=== PATIENT | female | born 1960 | race Caucasian/White ===

== ENCOUNTER 2017-02-27 14:09 | Emergency (ER) | payer OTHER ==
[~2017-02-27] VITALS: Ht 157.5 cm; Wt 75.2 kg
[~2017-02-27 14:09] MED LIST: ACET-1256 PO; ALBU1AER9 INH; ANT125 PO; ASPEC81 PO; ATOR-26 PO; DULO60CA44 PO; FENO48TA9 PO; FLUT0.0529 NAE; FRS/40 PO; GABA400C PO; GLC500 PO; METO25TA56 PO; NTRGSL/4 UT; NVLGI7030 SC; PANT40TA PO; POLY335019 PO; POTA10CA28 PO
[2017-02-27 14:11] VITALS: TEMP 36.5; Ht 157.5 cm; Wt 75.2 kg
[2017-02-27] MEDS ORDERED: DICY10CA55 PO (15:00)
[2017-02-27] MEDS ORDERED: MOME100A INH (15:00)
[2017-02-27] MEDS ORDERED: METF-384 PO (15:00)
[2017-02-27] MEDS ORDERED: ROSU40TA PO (15:00)
[2017-02-27] MEDS ORDERED: DULO60CA44 PO (15:00)
[2017-02-27] MEDS ORDERED: FENO50CA3 PO (15:00)
[2017-02-27] MEDS ORDERED: POTA1CAP53 PO (15:00)
[2017-02-27] MEDS ORDERED: ALBU18002 PO (15:00)
[2017-02-27] MEDS ORDERED: ASPI81TA28 PO (15:00)
[2017-02-27] MEDS ORDERED: NYSCR30 EXT (15:00)
[2017-02-27] MEDS ORDERED: PANT40TA PO (15:00)
[2017-02-27] MEDS ORDERED: INSDGIPEN SC (15:00)
[2017-02-27] MEDS ORDERED: NRN400 PO (15:00)
[2017-02-27] MEDS ORDERED: CILO50TA PO (15:00)
[2017-02-27] MEDS ORDERED: NVLGI7030 SC ×2 (15:00)
[2017-02-27] MEDS ORDERED: FRS/40 PO (15:00)
[2017-02-27] MEDS ORDERED: ACET-1256 PO (15:00)
--- NOTE | 2017-02-27 15:02 | EMERGENCY ROOM VISIT NOTE ---
History Report prepared by Deanna: Wally Colunga Under the Supervision of: Dr. Chucho Merchant D.O. First contact with patient: 14:46 Chief Complaint: CARDIAC ASSESSMENT Stated Complaint: REFERRED BY DOCTOR FOR EKG Nursing Triage Summary: pt reports to PCP today for L ear pain and swelling , pt states while speaking to provider mentioned that last " heart attack" was found by having ear pain and shoulder pain , pt denies cp sob, shoulder or neck pain at this time History of Present Illness The patient is a 56 year old female who presents to the Emergency Room for a cardiac assessment after visiting with her primary care physician. The patient states that she visited her primary care physician today due to resolved pain and swelling in her bilateral ears. She has a history of prior heart attacks and noted that her previous episodes were found following pain in her ears, jaw , and shoulders. She states that she had been having her ear pain for the past 2 -3 days. The patient notes that her discomfort is relieved at this time, but she is slightly nauseous. She also admits to feeling shortness of breath intermittently at baseline. Source of History: patient Onset: 2-3 Days [employer] Position: ear Timing: resolved Associated Symptoms: + SOB, + nausea Review of Systems See HPI for pertinent positives & negatives. A total of 10 systems reviewed and were otherwise negative. Past Medical & Surgical Medical Problems: (1) Maldonado's esophagus (2) Coronary artery disease (3) Diabetes mellitus, type II (4) Diabetic neuropathy (5) Diverticular disease of colon (6) Dyslipidemia (7) History of urinary calculi (8) Hypertension (9) Migraine headache Surgical Problems: (1) Status post coronary artery bypass grafting Family History Diabetes mellitus FHx: cancer FHx: heart disease Hypertension Social History Smoking Status: Never Smoker Alcohol Use: occasionally Drug Use: none Marital Status: Housing Status: lives with significant other Occupation Status: unemployed Current/Historical Medications Scheduled Aspirin (Aspirin Ec), 81 MG PO DAILY Cilostazol (Pletal), 50 MG PO DAILY Dicyclomine Hcl (Bentyl), 10 MG PO BID Duloxetine Hcl (Cymbalta), 60 MG PO DAILY Fenofibrate (Fenofibrate), 134 MG PO DAILY Furosemide (Lasix), 40 MG PO DAILY Gabapentin (Gabapentin), 400 MG PO TID Insulin Aspart Protamine & Asp (Novolog Mix 70/30), 80 UNITS SC QAM Insulin Aspart Protamine & Asp (Novolog Mix 70/30), 92 UNITS SC QPM Insulin Glargine (Lantus Solostar), 14 UNITS SC DAILY Metformin Hcl (Glucophage), 1,000 MG PO BIDM Mometasone Furoate-Formoterol (Dulera 100/5 Mcg), 2 PUFFS INH BID Pantoprazole (Protonix), 40 MG PO BID Potassium Chloride (Klor-Con Sprinkle), 10 MEQ PO DAILY Rosuvastatin Calcium (Crestor), 40 MG PO DAILY Scheduled PRN Acetaminophen (Tylenol), 500 MG PO Q8 PRN for Pain Albuterol Sulfate (Proair Respiclick), 2 PUFFS PO Q4 PRN for Cough Miscellaneous Medications Nystatin (Nystatin Cream), 0 EXT Allergies Coded Allergies: Iodine (Verified Allergy, Intermediate, HIVES, 08/30/15) CT DYE/XRAY DYE ALLERGY Metoclopramide (Verified Allergy, Intermediate, HIVES, 08/30/15) Iodinated Contrast Media (Verified Allergy, Unknown, ITCHINESS/HIVES, 07/05) Physical Exam Vital Signs Date Time Temp Pulse Resp B/P (MAP) Pulse Ox O2 Delivery O2 Flow Rate FiO2 02/27/17 17:18 82 18 107/71 92 02/27/17 16:12 82 20 106/69 95 Room Air 02/27/17 14:34 82 02/27/17 14:11 36.5 85 18 125/82 95 Room Air Physical Exam GENERAL: Patient is awake, alert, and in no acute distress. Patient is resting comfortably and showing no signs of anxiety EYES: The conjunctivae are clear. The pupils are round and reactive. EARS, NOSE, MOUTH AND THROAT: The nose is without any evidence of any deformity. Mucous membranes are moist tongue is midline NECK: The neck is nontender and supple. RESPIRATORY: Normal respiratory effort is noted there is no evidence of wheezing rhonchi or rales CARDIOVASCULAR: Regular rate and rhythm noted there no murmurs rubs or gallops normal S1 normal S2 GASTROINTESTINAL: The abdomen is soft. Bowel sounds are present in all quadrants. Abdomen is nontender MUSCULOSKELETAL/EXTREMITIES: There is no evidence of gross deformity full range of motion is noted in the hips and shoulders SKIN: There is no obvious evidence of any rash. There are no petechiae, pallor or cyanosis noted. NEUROLOGIC: Patient is awake alert and oriented x3 strength is symmetric patellar reflexes are 2+ bilaterally Medical Decision & Procedures ER Provider Diagnostic Interpretation: Radiology results as stated below per my review and radiologist interpretation: CHEST ONE VIEW PORTABLE CLINICAL HISTORY: CHEST PAIN dyspnea COMPARISON STUDY: 05/29/2015 FINDINGS: Prior median sternotomy. Diaphragms smooth. Lungs are clear. IMPRESSION: No acute process. Electronically signed by: Twin Connor M.D. 02/27/2017 3:10 PM Dictated Date/Time: 02/27/2017 3:09 PM Laboratory Results 02/27/17 14:30 Red Blood Count 5.13, Mean Corpuscular Volume 97.1, Mean Corpuscular Hemoglobin 30.6, Mean Corpuscular Hemoglobin Concent 31.5, Mean Platelet Volume 9.6, Neutrophils (%) (Auto) 46.5, Lymphocytes (%) (Auto) 38.2, Monocytes (%) (Auto) 12.1, Eosinophils (%) (Auto) 2.5, Basophils (%) (Auto) 0.5, Neutrophils # (Auto ) 2.98, Lymphocytes # (Auto) 2.44, Monocytes # (Auto) 0.77, Eosinophils # (Auto ) 0.16, Basophils # (Auto) 0.03 02/27/17 14:30 Test 02/27/17 14:30 White Blood Count 6.39 K/uL (4.8-10.8) Red Blood Count 5.13 M/uL (4.2-5.4) Hemoglobin 15.7 g/dL (12.0-16.0) Hematocrit 49.8 % (37-47) Mean Corpuscular Volume 97.1 fL (80-100) Mean Corpuscular Hemoglobin 30.6 pg (25-34) Mean Corpuscular Hemoglobin Concent 31.5 g/dl (32-36) Platelet Count 299 K/uL (130-400) Mean Platelet Volume 9.6 fL (7.4-10.4) Neutrophils (%) (Auto) 46.5 % Lymphocytes (%) (Auto) 38.2 % Monocytes (%) (Auto) 12.1 % Eosinophils (%) (Auto) 2.5 % Basophils (%) (Auto) 0.5 % Neutrophils # (Auto) 2.98 K/uL (1.4-6.5) Lymphocytes # (Auto) 2.44 K/uL (1.2-3.4) Monocytes # (Auto) 0.77 K/uL (0.11-0.59) Eosinophils # (Auto) 0.16 K/uL (0-0.5) Basophils # (Auto) 0.03 K/uL (0-0.2) RDW Standard Deviation 49.8 fL (36.4-46.3) RDW Coefficient of Variation 13.9 % (11.5-14.5) Immature Granulocyte % (Auto) 0.2 % Immature Granulocyte # (Auto) 0.01 K/uL (0.00-0.02) Prothrombin Time 10.4 SECONDS (9.0-12.0) Prothromb Time International Ratio 1.0 (0.9-1.1) Activated Partial Thromboplast Time 35.8 SECONDS (21.0-31.0) Partial Thromboplastin Ratio 1.4 Anion Gap 11.0 mmol/L (3-11) Est Creatinine Clear Calc Drug Dose 67.8 ml/min Estimated GFR () 85.1 Estimated GFR (Non- 73.4 BUN/Creatinine Ratio 14.8 (10-20) Calcium Level 9.6 mg/dl (8.5-10.1) Total Bilirubin 0.4 mg/dl (0.2-1) Direct Bilirubin 0.1 mg/dl (0-0.2) Aspartate Amino Transf (AST/SGOT) 89 U/L (15-37) Alanine Aminotransferase (ALT/SGPT) 87 U/L (12-78) Alkaline Phosphatase 72 U/L (45-117) Total Creatine Kinase 87 U/L (26-192) Creatine Kinase MB 3.1 ng/ml (0.5-3.6) Creatine Kinase MB Ratio 3.6 (0-3.0) Troponin I < 0.015 ng/ml (0-0.045) Total Protein 8.6 gm/dl (6.4-8.2) Albumin 4.6 gm/dl (3.4-5.0) Lipase 181 U/L (73-393) Laboratory results per my review. ECG Indication: chest pain Rate (beats per minute): 82 Rhythm: normal sinus Findings: Q waves (Inferior), T-wave inversion (anterior, high lateral) Comparison ECG Date: 09/25/2016 Change: no significant change ED Course 1452: The patient was evaluated in room C12. A complete history and physical examination were performed. 1702: I discussed the case with Dr. Gimenez - Emanuel Tassel Maker. He suggests a follow-up with cardiology and a return visit to the ED if her symptoms appear more cardiac in nature. 1708: Upon reevaluation, the patient is resting in bed. I discussed the results and treatment plan with her. She verbalized agreement of the treatment plan. The patient was discharged home. Medical Decision Blood pressure screening: Patient was found to have normal blood pressure on screening and does not require follow-up. Medication Reconciliation: I attest that I have personally reviewed the patient' s current medications list. Differential diagnosis: Etiologies such as cardiac ischemia, aortic dissection, pulmonary embolism, pneumonia, pneumothorax, musculoskeletal, infections, pericarditis, myocarditis , esophageal rupture, gastrointestinal, as well as others were entertained. The patient is a 56-year-old female who presented to the emergency department at the request of her primary care physician's office. She was seen at the primary care physician's office today for earache and jaw pain. She was felt to have an ENT infection and was started on medications but because of her history she had an EKG done in the office. EKG did show some ST segment and T-wave abnormalities which was felt to be a new change compared to previous EKG. The patient was sent to the emergency department for further evaluation. I discussed the patient's laboratory and radiographic studies with her. Her EKG appears similar to when she's had in the past. Her cardiac biomarkers were negative despite having ongoing pain for more than 24 hours. I discussed the limitations of the emergency department workup for chest pain with her. I also discussed her case with the on-call Emanuel manager drive and at this time I feel the patient can safely follow up as an outpatient. Likely this represents an ENT source for her pain but with her history could represent an anginal equivalent. This reason she was encouraged to rest and avoid any strenuous activity. She was also encouraged to follow-up with her doctor for further evaluation and possible stress testing. She was also encouraged to return to the emergency department immediately if symptoms change worsen or the need arises. Consults Time Called: 1656 Consulting Physician: Dr. Pernell Castellanos Tassel Maker Returned Call: 1702 I discussed the case with Dr. Pernell Castellanos Tassel Maker. He suggests a follow-up with cardiology and a return visit to the ED if her symptoms appear more cardiac in nature. Impression Primary Impression: Precordial chest pain Additional Impression: Ear ache Scribe Attestation The scribe's documentation has been prepared under my direction and personally reviewed by me in its entirety. I confirm that the note above accurately reflects all work, treatment, procedures, and medical decision making performed by me. Departure Information Dispostion Home / Self-Care Referrals Estela Summers M.D. (PCP) Forms IMPORTANT VISIT INFORMATION Patient Instructions My [facility] Additional Instructions Follow-up with your primary care physician for reevaluation. Rest and avoid any strenuous activity. Continue all other medications as prescribed. Return to the emergency department immediately if symptoms change worsen or the need arises. I would recommend a repeat of your liver function studies next week with your family doctor because they were mildly elevated in the emergency department this evening. Problem Qualifiers
--- NOTE | 2017-02-27 15:11 | DIAGNOSTIC IMAGING REPORT ---
CHEST ONE VIEW PORTABLE CLINICAL HISTORY: CHEST PAIN dyspnea COMPARISON STUDY: 05/29/2015 FINDINGS: Prior median sternotomy. Diaphragms smooth. Lungs are clear. IMPRESSION: No acute process. Electronically signed by: Twin Connor M.D. 02/27/2017 3:10 PM Dictated Date/Time: 02/27/2017 3:09 PM
[2017-02-27 15:19] LABS: BASO % 0.5 %; BASO ABS # 0.03 K/uL (0-0.2); COMPLETE YES; EOS % 2.5 %; HEMATOCRIT 49.8 % (37-47); IG% 0.2 %; LYMPH % 38.2 %; LYMPH ABS # 2.44 K/uL (1.2-3.4); MEAN CELL VOLUME 97.1 fL (80-100); MEAN CORPUSCULAR HEMOGLOBIN 30.6 pg (25-34); MEAN CORPUSCULAR HGB CONC 31.5 g/dl (32-36); MEAN PLATELET VOLUME 9.6 fL (7.4-10.4); MONO % 12.1 %; NEUT % 46.5 %; PLATELET COUNT 299 K/uL (130-400); RED BLOOD COUNT 5.13 M/uL (4.2-5.4); WHITE BLOOD COUNT 6.39 K/uL (4.8-10.8)
[2017-02-27 15:29] LABS: PARTIAL THROMBOPLASTIN RATIO 1.4; PROTHROMBIN TIME (PATIENT) 10.4 SECONDS (9.0-12.0)
[2017-02-27 16:48] LABS: POTASSIUM 3.8 mmol/L (3.5-5.1); SODIUM 139 mmol/L (136-145)
[2017-02-27 16:49] LABS: ALKALINE PHOSPHATASE 72 U/L (45-117); ALT/SGPT 87 U/L (12-78); BLOOD UREA NITROGEN 13 mg/dl (7-18); BUN/CREATININE RATIO 14.8 (10-20); CALCIUM 9.6 mg/dl (8.5-10.1); CARBON DIOXIDE 26 mmol/L (21-32); CHLORIDE 102 mmol/L (98-107); CREATININE 0.88 mg/dl (0.60-1.20); GLUCOSE 80 mg/dl (70-99)
[2017-02-27 16:56] LABS: AST/SGOT 89 U/L (15-37); CKMB/CK RATIO 3.6 (0-3.0)
[2017-02-27 17:18] VITALS: BP 107/71; PULSE 82; O2SAT 92
== END 2017-02-27 17:19 | disposition home or self-care (01) ==
LOC: C.EDB 14:10 → C.EDC 17:19
DX: R07.2 Precordial pain (principal); H92.03 Otalgia, bilateral; K22.70 Barrett's esophagus without dysplasia; I25.10 Atherosclerotic heart disease of native coronary artery without angina pectoris; E78.5 Hyperlipidemia, unspecified; E11.40 Type 2 diabetes mellitus with diabetic neuropathy, unspecified; Z87.442 Personal history of urinary calculi; I10 Essential (primary) hypertension; G43.909 Migraine, unspecified, not intractable, without status migrainosus; Z83.3 Family history of diabetes mellitus; Z80.9 Family history of malignant neoplasm, unspecified; Z82.49 Family history of ischemic heart disease and other diseases of the circulatory system; Z79.82 Long term (current) use of aspirin; Z79.899 Other long term (current) drug therapy

== ENCOUNTER → 2017-04-01 | Outpatient (CLI) | payer OTHER ==
[~2017-04-01] MED LIST changes: +ALBU18002 PO; -ALBU1AER9 INH; -ANT125 PO; -ASPEC81 PO; +ASPI81TA28 PO; -ATOR-26 PO; +CILO50TA PO; +DICY10CA55 PO; -FENO48TA9 PO; +FENO50CA3 PO; -FLUT0.0529 NAE; -GABA400C PO; -GLC500 PO; +INSDGIPEN SC; +METF-384 PO; -METO25TA56 PO; +MOME100A INH; +NRN400 PO; -NTRGSL/4 UT; +NYSCR30 EXT; -POLY335019 PO; -POTA10CA28 PO; +POTA1CAP53 PO; +ROSU40TA PO
--- NOTE | 2017-04-02 06:09 | PAP/PSG TECHNICIAN REPORT ---
[facility] Electrical Maintenance Engineer Polysomnogram Report Study name: None Report date: 04/02/2017 Study date: 04/01/2017 Referring Physician: Jose Velazquez M.D. Name: BILLY BONI Dontrell Interpreting Physician: Anuj Velazquez M.D. Date of : 1960 Electrical Maintenance Engineer: Roberta Reid [facility]. Sex: Female Age: 57 StudyType: PSG Weight: 164 lbs Height: 57 years, Height 5' 1" Neck Circum: 14.5 inches BMI: 30.98 Medications: Neurontin 400 mg, Fenofibrate , Prinivil, Duloxetine, Dulera, Bentyl, Lasix, Protonix, Lopressor, Lipitor, Glucophage, Klor-Con, Albuterol 108(90base), Aspirin 81 mg, Nystatin [id number], Acetaminophen 500 mg, Miralax, Flonase Patient History 56 yr. old female here for a possible split night sleep study in room 2. Patient complains of EDS, and morning headaches. Patients [place] Sleepiness Scale score is 10/21 (she does not drive). Parameters Monitored NPSG: E1-M2, E2-M1, Fp1-M2, Fp2-M1, F3-M2, F4-M2, F4-M1, C3-M2, C4-M2, C4-M1, O1-M2, O2-M2, O2-M1, T3-M2, T4-M1, P3-M2, P4-M1, CHIN1, CHIN2, HR, EKG, Legs, PFLOW, SNOR, FLOW, CFLOW, Tidal Volume, THOR, ABDO, SpO2, PLTH, CPRESS, ETCO2 Wave, ETCO2, pH Sleep Architecture Sleep Stages Time at Lights Off 10:52:41 PM STAGES Time (min.) TST (%) Time at Lights On 5:38:41 AM Wake 131.0 -- Total Recording Time (TRT) 406.00 min. N1 20.0 7 Total Sleep Period (TSP) 339.5 min. N2 193.0 70 Total Sleep Time (TST) 275.0min. N3 14.0 5 Awake Time 131.0 min. REM 48.0 17 Wake after Sleep Onset 64.5 min. Sleep Efficiency (SE) 68 % Sleep Onset Latency (RON) 66.5 min. Number of Stage 1 Shifts None Awakenings 14 Stage Changes 58 Number of REM periods 1 REM 48.0 17 REM Latency 249.5 min. NREM 227.0 83 Body Position Analysis Supine Right Left Side Prone Vertical Total Sleep Time (min.) 187.3 164.9 41.3 206.24 0.0 0.3 Total Sleep Time (%) 25% 60% 15% 75 0% N/A% Total Sleep Time REM (min.) 0.0 48.0 0.0 None 0.0 0.0 Total Sleep Time NREM (min.) 68.8 116.9 41.3 None 0.0 0.0 Intermittent Wake (min.) 118.6 11.8 0.2 None 0.0 0.3 Total Sleep Period (%) 36% None None None None None Arousals Myoclonus (PLM) * Events Count Index Events Count Index Spontaneous 9 2 Events Awake (PLMW) 82 37.6 Respiratory 0 0.0 Events Asleep w/ Arousal (PLMA) 4 0.9 PLM 4 1 Events Asleep w/o Arousal (PLMS) 19 4.1 Snoring 8 2 Total Asleep 23 5.0 Total 20 4 Total 105 16 Respiratory Analysis * CA OA MA CH H RERA Total Count 2 1 0 0 11 0 14 Index 0.4 0.2 0.0 0 2.4 0 3.1 Mean Duration 10.0 12.0 0.0 0.00 23.3 0.0 20.6 Longest Duration 10.0 12.0 0.0 0.00 0.0 0.0 39.6 Respiratory Event Summary Total Supine ~Supine Right Left Prone REM NREM Apneas Count 3 0 3 2 1 N/A 0 3 Index 0.7 0 1 0.7 1.5 N/A 0 1 Hypopneas (4% Desat) Count 11 5 6 6 0 N/A 4 7 Index 2.4 4.4 2 2.2 0.0 N/A 5.0 1.9 Apneas & All Hypopneas Count 14 5 9 8 1 N/A 4 10 Index 3.1 4 3 3 1 N/A 5.0 2.6 Respiratory Events (Passenger Car Cleaning Supervisor+All Hyp+RERA) Count 14 5 9 8 1 N/A 4 10 Index 3.1 4 3 2.9 1.5 N/A 5.0 2.6 Respiratory Related Arousal Count 0 5 0 0 0 N/A 0 0 Index 0.0 0 0 0 0 N/A 0 0 Snoring Analysis Supine Right Left Prone REM NREM Total Snore duration 5.2 min Snores count 221 38 21 N/A 6 274 280 Snore mean duration 1.1 Sec Snores index 193 14 30 N/A 7.5 72.4 61.1 TST with snoring (%) 1.9% Desaturation Event Summary: Minimum %SpO2 Event Count Mean/Min/Max Duration(sec.) Desaturation Index % Time In Bed > 90 28 18.7 / 5.3 / 60.0 12.6 33.0 86 - 90 11 17.1 / 5.8 / 57.0 2.4 66.9 81 - 85 0 N/A 0.0 0.0 76 - 80 0 N/A 0.0 0.0 71 - 75 0 N/A 0.0 0.0 66 - 70 0 N/A 0.0 0.0 61 - 65 0 N/A 0.0 0.0 56 - 60 0 N/A 0.0 0.0 51 - 55 0 N/A 0.0 0.0 < 50 0 N/A 0.0 0.0 Total REM NREM Awake <50% 0.0 min. 0.0 min. 0.0 min. 0.0 min. 51 - 60% 0.0 min. 0.0 min. 0.0 min. 0.0 min. 61 - 70% 0.0 min. 0.0 min. 0.0 min. 0.0 min. 71 - 80% 0.2 min. 0.0 min. 0.0 min. 0.2 min. 81 - 90% 271.0 min. 36.0 min. 116.2 min. 118.8 min. 91 - 100% 133.6 min. 12.0 min. 110.3 min. 11.3 min. Average 90 90 91 89 Minimum SpO2 72 86 86 72 Desaturation Event Index 4.4 6.3 5.3 2.7 # Desat. Events below 89% 14 5 5 4 Time(%) with Saturation below 89% 14.8 2.6 5.0 7.2 Time(min.) with Saturation below 89% 60.1 10.3 20.4 29.3 Time (mins) REM (mins) NREM (mins) % of TST SpO2 Below 90% 12 5 N7 33.3 SpO2 Below 88% 3 0 0 2 Heart Rate Analysis Min (bpm) Max (bpm) Average (bpm) Awake 38 127 81 NREM 67 127 85 REM 62 92 85 Overall 62 127 85 Supplemental O2 Values Minimum O2 level: None Value Start Time End Time Electrical Maintenance Engineer Comments MS. Jansen slept in the right, left, and supine positions. Cardiac arrhythmias noted. No PLMs noted. No bruxism noted. Snoring was noted and scored as a 3 on a scale of 0 through 5. (0=no snoring, 5=snoring loud enough to be heard through a closed door or down the [address] way) MS. Jansen did not wake to use the restroom during the night. MS. Jansen stated, that was a normal night. The final report will be interpreted and signed by a sleep physician. The completed physician report will then be placed in the patient medical record. Therapy (cm H2O) 0 TIB (min.) 406.0 TST (min.) 275.0 Sleep Onset (min.) 66.5 REM Onset From Sleep (min.) 249.5 Sleep Efficiency % 68 Wakefulness (%) 32 Wakefulness (min.) 131.0 NREM 1 (%) 7 NREM 1 (min.) 20.0 NREM 2 (%) 70 NREM 2 (min.) 193.0 NREM 3 (%) 5 NREM 3 (min.) 14.0 REM (%) 17 REM (min.) 48.0 # Arousals 20 Arousal Index 4 # Snore 280 Snore Index 61.1 AHI 3.1 AHI Supine 4 AHI Non-Supine 3 NREM AHI 2.6 REM AHI 5.0 RDI 3.1 # Obstructive Apnea 1 # Central Apnea 2 # Mixed Apnea 0 # Hypopneas 11 RERAs 0 Total Respiratory Events 15 Time Below SpO2 89% (min.) 30.8 Mean NREM SpO2 (%) 91 Mean REM SpO2 (%) 90 Mean Sleep SpO2 (%) 91 Min NREM SpO2 (%) 86 Min REM SpO2 (%) 86 Position Supine (min.) 187.3 Position Non-supine (min.) 206.2 LM Index Sleep 5.0 LM Index NREM 5.0 LM Index REM 5.0 Mean Heart Rate (bpm) 85 Min Heart Rate (bpm) 62
--- NOTE | 2017-04-27 18:39 | POLYSOMNOGRAPH REPORT ---
REFERRING PERSON: Dr. Alireza Velazquez. LIQUEFIER: Roberta Reid. Ms. Jansen is a 57-year-old female sent for a possible split night sleep study. She complains of excessive daytime sleepiness and morning headaches. Her [place] sleepiness scale score on the evening of this study is 10/21. She does not drive. BMI is 30.98. Following the technical and digital specifications of the [place] [employer] (AASM) a standard diagnostic polysomnogram was performed monitoring EEG, EOG, EMG (chin and leg deviations), oxygen saturation, body position, digital video, respiratory effort and airflow. The sleep Stage and event scoring was based on the AASM Manual for the Scoring of Sleep and Associated Events 2007 edition. Apneas are defined as a drop in the peak thermal sensor excursion by >90% of baseline for at least 10 seconds. Hypopneas were scored using the 4% oxygen desaturation rule (4A-[employer]ic[employer]) and a decrease in the nasal pressure excursions by >30% of baseline for at least 10 seconds. Respiratory effort-related arousal (RERA's) is defined as a sequence of breaths lasting at least 10 seconds characterized by increasing respiratory effort or flattening of the nasal pressure waveform leading to an arousal from sleep when the sequence of breaths does not meet criteria for an apnea or hypopnea. Apnea Hypopnea index (AHI) is defined as the number of apneas and hypopneas occurring in an hour of sleep. Respiratory disturbance index (RDI) is defined as the number of apneas, hypopneas, and RERA's occurring in an hour of sleep. Ms. Larsons total sleep period time was 339.5 minutes. Total sleep time was 275 minutes. Sleep efficiency was 68%. Latency to sleep onset was 66.5 minutes. Wake after sleep onset was 64.5 minutes. Total non-REM sleep time was 227 minutes. She spent 7% of that time in N1 sleep, 70% in N2 sleep, and 5% in N3 sleep. REM latency was 249.5 minutes. Total REM sleep time was 48 minutes or 17% of total sleep time. There were 20 cortical arousals from sleep. Nine of these arousals were spontaneous, 4 were due to periodic limb movements and 8 were due to snoring. There were 23 periodic limb movements noted on this test. Limb movement index was 5. Limb movement with arousal index was 0.9. There were 2 central, 1 obstructive and no mixed apneas on this test. There were 11 hypopneas and no RERA. Apnea-hypopnea index was 3.1. This is normal. 280 snoring events were recorded. Total sleep time with snoring was 1.9%. Mean saturation was 90% with desaturations to 72% on this test. Saturations were less than 89 for 60.1 minutes of recorded time. This is significant nocturnal hypoxemia. There was no cardiac ectopy other than occasional premature atrial complexes noted on EKG monitoring. Heart rates ranged from a low of 62 beats per minute to a high of 127 beats per minute during sleep. IMPRESSION AND PLAN: A 57-year-old female with evidence of nocturnal hypoxemia without sleep apnea on this sleep study. 1. The patient would likely benefit from the oxygen therapy. She should be started on 2 liters of oxygen at home and then an overnight oximetry performed on oxygen therapy to ensure that her hypoxemia resolves with this therapy. 2. Should the cause of her hypoxemia be unknown, this patient may benefit from pulmonary function test and/or pulmonary consultation.
== END | disposition home or self-care (01) ==
LOC: C.NEUR 21:00
PROVIDERS: ATTEND Family Medicine
DX: G47.10 Hypersomnia, unspecified (principal); R06.83 Snoring; I10 Essential (primary) hypertension; E11.9 Type 2 diabetes mellitus without complications; E66.9 Obesity, unspecified; Z79.899 Other long term (current) drug therapy

== ENCOUNTER → 2017-09-18 | Outpatient (CLI) | payer OTHER ==
[~2017-09-18] MED LIST changes: +AMOX500C3 PO; +ANT25 PO; +CYM/30 PO; +EMPA1TAB PO; +FENO134C PO; +FLUT0.15 NAE; +LSN25 PO; +METO25TA56 PO; +NVLGI/PEN SC; -NYSCR30 EXT; +NYSCR30 TOP; +ONDA4TAB10 SL; +OXGN; +POLY335019 PO; +RANI150T3 PO; +SINCALIDE INJ 1.5 MCG in SODIUM CHLORIDE 0.9% 100ML 100 ML IV SCH
--- NOTE | 2017-09-18 10:20 | DIAGNOSTIC IMAGING REPORT ---
NUCLEAR MEDICINE HEPATOBILIARY SCAN WITH EJECTION FRACTION HISTORY: COMMON BILE DUCT DILATION, right upper quadrant abdominal PAIN COMPARISON: Abdominal ultrasound 03/17/2014. TECHNIQUE: Immediately following the intravenous administration of 5.3 mCi Tc-99m Choletec, dynamic anterior abdominal imaging pre/post 1.5 mcg of Kinevac was performed. FINDINGS: Uniform hepatic tracer accumulation is shown. Prompt intrahepatic biliary excretion is seen. The gallbladder, common bile duct, and small bowel are all visualized by 20 minutes. This appearance represents the normal sequence of biliary excretion. The gall bladder ejection fraction following administration of Kinevac was 52% (normal >35%). IMPRESSION: 1. No evidence for cystic duct obstruction. 2. Gallbladder ejection fraction calculated to be 52 %. Electronically signed by: Fernando Polo M.D. 09/18/2017 10:19 AM Dictated Date/Time: 09/18/2017 10:18 AM
== END | disposition home or self-care (01) ==
LOC: C.NUCL 07:43
PROVIDERS: ATTEND Student in an Organized Health Care Education/Training Program
DX: K83.8 Other specified diseases of biliary tract (principal); R10.9 Unspecified abdominal pain

== ENCOUNTER 2018-02-04 18:03 | Emergency (ER) | payer OTHER ==
[~2018-02-04] VITALS: Ht 154.9 cm; Wt 74.1 kg
[~2018-02-04 18:03] MED LIST changes: -AMOX500C3 PO; -ANT25 PO; -CYM/30 PO; -EMPA1TAB PO; -FENO134C PO; -FLUT0.15 NAE; -LSN25 PO; -METO25TA56 PO; -NVLGI/PEN SC; -ONDA4TAB10 SL; -OXGN; -POLY335019 PO; -RANI150T3 PO; -SINCALIDE INJ 1.5 MCG in SODIUM CHLORIDE 0.9% 100ML 100 ML IV SCH
[2018-02-04 18:09] VITALS: TEMP 36.4; Ht 154.9 cm; Wt 74.1 kg
[2018-02-04] MEDS ORDERED: MECLIZINE HCL 25 MG TAB PO STA (18:19)
[2018-02-04] MEDS ORDERED: ACETAMINOPHEN 500 MG TAB PO STA (18:19)
--- NOTE | 2018-02-04 18:42 | EMERGENCY ROOM VISIT NOTE ---
History Report prepared by Deanna: Micky Walker Under the Supervision of: Dr. Uday Alva M.D. First contact with patient: 18:13 Chief Complaint: DIZZY Stated Complaint: DIZZY,NAUSEA History of Present Illness The patient is a 57 year old female who presents to the Emergency Room with complaints of worsening dizziness beginning yesterday. The patient states her symptoms started yesterday after therapy for her back. She reports she was walking to her car when she felt her sugar was dropping. The patient notes her sugar was 77 at the car. She states she started feeling slightly dizzy and developed a headache. The patient reports she has history of migraines, and she has not had one in a while. She notes her headache was a 6/10 yesterday. The patient states she tried lying down on the couch yesterday, and it slightly alleviated her symptoms, but they were still there. She reports when she got up to use the restroom and walk around, her symptoms worsened again. She notes she was having a severe spell yesterday, and she noticed her eyes were jerking back and forth. The patient notes she went to sleep and woke up with the same symptoms this morning, and her left ear was swollen. She states her headache decreased to a 2/10. The patient reports she feels out of it. She notes she was sweaty and hot. The patient states she was placed on amoxicillin 10 days ago for fluid on her lungs because she was coughing too much. She denies the room spinning, vomiting, arm weakness, congestion, runny nose, sorethroat, urinary symptoms, a history of stroke, a history of vertigo, and trouble eating or drinking. Source of History: patient Onset: yesterday Quality: other (dizziness) Timing: worsening Modifying Factors (Worsening): other (standing and walking around) Modifying Factors (Relieving): other (laying down) Associated Symptoms: + headache, No sorethroat, No vomiting, No urinary symptoms, No weakness (arm) Note: Associated symptoms: episode of her eyes jerking back and forth, left ear swelling, sweaty, and hot Denies: congestion, runny nose, room spinning, trouble eating or drinking Review of Systems See HPI for pertinent positives & negatives. A total of 10 systems reviewed and were otherwise negative. Past Medical & Surgical Medical Problems: (1) Maldonado's esophagus (2) Coronary artery disease (3) Diabetes mellitus, type II (4) Diabetic neuropathy (5) Diverticular disease of colon (6) Dyslipidemia (7) History of urinary calculi (8) Hypertension (9) Migraine headache Surgical Problems: (1) Status post coronary artery bypass grafting Family History Diabetes mellitus FHx: cancer FHx: heart disease Hypertension Social History Smoking Status: Former Smoker Alcohol Use: occasionally Drug Use: none Marital Status: Housing Status: lives with significant other Occupation Status: unemployed Current/Historical Medications Scheduled Amoxicillin (Amoxil), Unknown Dose PO DIRECTED Aspirin (Aspirin Ec), 162 MG PO DAILY Cilostazol (Pletal), 100 MG PO DAILY Dicyclomine Hcl (Bentyl), 10 MG PO BID Duloxetine Hcl (Cymbalta), 60 MG PO DAILY Empagliflozin (Jardiance), 10 MG PO DAILY Fenofibrate Micronized (Tricor), 134 MG PO QAM WITH MEAL Fluticasone Propionate (Nasal) (Flonase Allergy Relief), 2 SPRAYS JOSE CARLOS DAILY Furosemide (Lasix), 40 MG PO DAILY Gabapentin (Gabapentin), 400 MG PO TID Home O2 Therapy (Oxygen), 2 LITERS NA HS Insulin Aspart (Novolog Flexpen), 6 UNITS SC DAILY WITH LUNCH Insulin Aspart Protamine & Asp (Novolog Mix 70/30), 88 UNITS SC QAM Insulin Aspart Protamine & Asp (Novolog Mix 70/30), 98 UNITS SC QPM Lisinopril (Lisinopril), 2.5 MG PO DAILY Metformin Hcl (Glucophage), 1,000 MG PO BIDM Metoprolol Tartrate (Lopressor) (Lopressor), 12.5 MG PO DAILY Mometasone Furoate-Formoterol (Dulera 100/5 Mcg), 2 PUFFS INH BID Nystatin (Nystatin Cream), 1 APPLN TOP DIRECTED Ondasetron Odt (Zofran Odt), 4 MG SL Q6H Pantoprazole (Protonix), 40 MG PO BID Polyethylene Glycol 3350 (Miralax), 1-4 DOSE PO DAILY Potassium Chloride (Klor-Con Sprinkle), 10 MEQ PO DAILY Ranitidine Hcl (Zantac), 150 MG PO BID Rosuvastatin Calcium (Crestor), 40 MG PO DAILY Scheduled PRN Acetaminophen (Tylenol), 500 MG PO Q4H PRN for Pain Albuterol Sulfate (Proair Respiclick), 2 PUFFS PO Q4 PRN for Cough Meclizine HCl (Meclizine HCl), 1 TAB PO Q8 PRN for Dizziness or Vertigo Allergies Coded Allergies: Iodine (Verified Allergy, Intermediate, HIVES, 02/04/18) CT DYE/XRAY DYE ALLERGY Metoclopramide (Verified Allergy, Intermediate, HIVES, 02/04/18) Adhesives (Verified Allergy, Mild, RASH FROM NICOTINE PATCHES, 02/04/18) Iodinated Diagnostic Agents (Verified Allergy, Unknown, ITCHINESS/HIVES, ) Physical Exam Vital Signs Date Time Temp Pulse Resp B/P (MAP) Pulse Ox O2 Delivery O2 Flow Rate FiO2 02/04/18 21:21 68 18 131/72 93 02/04/18 20:48 69 18 123/79 95 Room Air 02/04/18 20:07 65 02/04/18 18:49 74 20 141/76 98 Room Air 02/04/18 18:42 75 145/85 76 151/75 75 141/76 02/04/18 18:09 36.4 77 20 130/78 96 Room Air Physical Exam GENERAL: Patient is in no acute distress. HEENT: No acute trauma, normocephalic atraumatic, mucous membranes moist, no nasal congestion, no scleral icterus. Right TM clear. Left TM with fluid behind the drum with no erythema. No throat erythema or exudate. No nystagmus. NECK: No stridor, no adenopathy, no meningismus, trachea is midline. LUNGS: Clear to auscultation bilaterally, no wheeze, no rhonchi, breath sounds equal. HEART: Without murmurs gallops or rubs, regular rate and rhythm. ABDOMEN: Soft, nontender, bowel sounds positive, no hernias, no peritonitis. EXTREMITIES: No cyanosis or edema, full range of motion of all the joints without pain or difficulty, no signs for acute trauma. NEUROLOGIC: Oriented x 3, no acute motor or sensory deficits, no focal weakness. No cerebellar dysfunction or pronator drift. No speech slur or facial droop. SKIN: No rash, no jaundice, no diaphoresis. Medical Decision & Procedures ER Provider Diagnostic Interpretation: Radiology results as stated below per my review and radiologist interpretation: CT SCAN OF THE BRAIN WITHOUT IV CONTRAST CLINICAL HISTORY: Change in mental status. Generalized weakness. COMPARISON STUDY: CT of the brain dated 05/29/2015. TECHNIQUE: Unenhanced axial CT scan of the brain is performed from the vertex to the skull base. A dose lowering technique was utilized adhering to the principles of ALARA. CT DOSE: 537.48 mGy.cm FINDINGS: Brain parenchyma: The brain parenchyma is normal in appearance. There is no hemorrhage, mass effect, or evidence of acute territorial ischemia by CT criteria. Page-white matter is preserved. No extra-axial fluid collection is seen. Ventricles, sulci, cisterns: Normal in configuration. Intracranial vasculature: There is atherosclerotic calcification of the cavernous carotid arteries. Calvarium: Unremarkable. Sinuses and mastoids: The visualized paranasal sinuses are clear. The mastoid air cells are well pneumatized. Orbits: The bony orbits are grossly intact. IMPRESSION: There is no hemorrhage, mass effect, or evidence of acute territorial ischemia by CT criteria. Electronically signed by: Uday Horner M.D. 02/04/2018 7:24 PM Dictated Date/Time: 02/04/2018 7:22 PM CHEST ONE VIEW PORTABLE HISTORY: EVALUATE ALTERED MENTAL STATUS/WEAKNESS COMPARISON: Chest 02/27/2017. FINDINGS: The heart remains mildly enlarged. There are poststernotomy changes. No pleural effusions. No pneumothorax. The lungs are clear. IMPRESSION: Stable mild cardiomegaly. Electronically signed by: Fernando Polo M.D. 02/04/2018 6:39 PM Dictated Date/Time: 02/04/2018 6:38 PM Laboratory Results 02/04/18 18:40 Red Blood Count 4.70, Mean Corpuscular Volume 95.3, Mean Corpuscular Hemoglobin 31.9, Mean Corpuscular Hemoglobin Concent 33.5, Mean Platelet Volume 9.5, Neutrophils (%) (Auto) 54.6, Lymphocytes (%) (Auto) 35.5, Monocytes (%) (Auto) 5.9, Eosinophils (%) (Auto) 3.2, Basophils (%) (Auto) 0.6, Neutrophils # (Auto) 3.39, Lymphocytes # (Auto) 2.21, Monocytes # (Auto) 0.37, Eosinophils # (Auto) 0.20, Basophils # (Auto) 0.04 02/04/18 18:40 Test 02/04/18 18:40 02/04/18 20:29 White Blood Count 6.22 K/uL (4.8-10.8) Red Blood Count 4.70 M/uL (4.2-5.4) Hemoglobin 15.0 g/dL (12.0-16.0) Hematocrit 44.8 % (37-47) Mean Corpuscular Volume 95.3 fL (80-100) Mean Corpuscular Hemoglobin 31.9 pg (25-34) Mean Corpuscular Hemoglobin Concent 33.5 g/dl (32-36) Platelet Count 264 K/uL (130-400) Mean Platelet Volume 9.5 fL (7.4-10.4) Neutrophils (%) (Auto) 54.6 % Lymphocytes (%) (Auto) 35.5 % Monocytes (%) (Auto) 5.9 % Eosinophils (%) (Auto) 3.2 % Basophils (%) (Auto) 0.6 % Neutrophils # (Auto) 3.39 K/uL (1.4-6.5) Lymphocytes # (Auto) 2.21 K/uL (1.2-3.4) Monocytes # (Auto) 0.37 K/uL (0.11-0.59) Eosinophils # (Auto) 0.20 K/uL (0-0.5) Basophils # (Auto) 0.04 K/uL (0-0.2) RDW Standard Deviation 50.3 fL (36.4-46.3) RDW Coefficient of Variation 14.2 % (11.5-14.5) Immature Granulocyte % (Auto) 0.2 % Immature Granulocyte # (Auto) 0.01 K/uL (0.00-0.02) Anion Gap 9.0 mmol/L (3-11) Est Creatinine Clear Calc Drug Dose 54.9 ml/min Estimated GFR () 69.1 Estimated GFR (Non- 59.6 BUN/Creatinine Ratio 18.1 (10-20) Calcium Level 9.7 mg/dl (8.5-10.1) Total Bilirubin 0.3 mg/dl (0.2-1) Aspartate Amino Transf (AST/SGOT) 33 U/L (15-37) Alanine Aminotransferase (ALT/SGPT) 44 U/L (12-78) Alkaline Phosphatase 52 U/L (45-117) Total Protein 8.3 gm/dl (6.4-8.2) Albumin 4.7 gm/dl (3.4-5.0) Globulin 3.6 gm/dl (2.5-4.0) Albumin/Globulin Ratio 1.3 (0.9-2) Thyroid Stimulating Hormone (TSH) 1.460 uIu/ml (0.300-4.500) Urine Color YELLOW Urine Appearance CLEAR (CLEAR) Urine pH 6.0 (4.5-7.5) Urine Specific [facility] 1.030 (1.000-1.030) Urine Protein NEG (NEG) Urine Glucose (UA) 3+ (NEG) Urine Ketones NEG (NEG) Urine Occult Blood NEG (NEG) Urine Nitrite NEG (NEG) Urine Bilirubin NEG (NEG) Urine Urobilinogen NEG (NEG) Urine Leukocyte Esterase NEG (NEG) Laboratory results reviewed by me. Medications Administered Medications (Trade) Dose Ordered Sig/Amy Route Start Time Stop Time Status Last Admin Dose Admin Meclizine HCl (Antivert Tab) 25 mg NOW STAT PO 02/04/18 18:19 02/04/18 18:22 DC 02/04/18 18:48 25 MG Acetaminophen (Tylenol Tab) 1,000 mg NOW STAT PO 02/04/18 18:19 02/04/18 18:22 DC 02/04/18 18:48 1,000 MG Ondansetron HCl (Zofran Inj) 4 mg NOW STAT IV 02/04/18 19:25 02/04/18 19:26 DC 02/04/18 19:56 4 MG Ondansetron HCl (ZOFRAN ODT 4MG Home Pack) 1 homepack UD ONCE PO 02/04/18 21:15 02/04/18 21:16 DC 02/04/18 21:18 1 HOMEPACK Meclizine HCl (Antivert 25MG Home Pack) 1 homepack UD ONCE PO 02/04/18 21:15 18 21:16 DC 02/04/18 21:19 1 HOMEPACK ECG Per My Interpretation Indication: other (dizziness) Rate (beats per minute): 74 Rhythm: normal sinus Findings: no ectopy, other (Poor R-wave progession. No ST elevation. No PVCs.) ED Course 1813: The patient was evaluated in room B10. A complete history and physical exam was performed. 1818: Ordered Acetaminophen 1000mg PO, Meclizine HCl 25mg PO 1852: The patient's orthostatic vital signs are negative. 1922: The nurse informed me the patient is now vomiting. 1924: Ordered Ondansetron HCl 4mg IV 2022: I reevaluated the patient. She thinks she vomited from the wax smell that was placed on the floor. She states she feels better now. 2102: Reevaluated the patient. Discussed results and discharge instructions: she verbalized understanding and agreement. The patient is ready for discharge after she receives her medication. 2114: Ordered Meclizine HCl 1 homepack PO, Ondansetron HCl 1 homepack PO Medical Decision The patient is a 57 year old female who presents to the ED with complaints of dizziness. Differential diagnoses considered include vertigo, CVA, dehydration , orthostasis, elevated anemia, UTI, thyroid disorder. There is no leukocytosis or concerning anemia. No significant electrolyte abnormality, kidney failure or hepatitis. Orthostatic vital signs were negative. Brain CT shows no acute bleed or mass-effect. Urinalysis does not show infection. EKG shows a normal sinus rhythm, no acute ischemia. On exam, there were no focal neurologic deficits. No speech slur or facial droop. The patient received IV saline, oral meclizine, oral Tylenol. She was given IV Zofran. She had a bout of emesis here that she thought was secondary to the smell of wax in the hallway. The patient now feels markedly better. She is not toxic or febrile. Her symptoms sound vertiginous I believe. She will be discharged on meclizine and Zofran. If things are worsening, she can return for reassessment. Outpatient family doctor follow-up was suggested. Medication Reconcilliation Current Medication List: was personally reviewed by me Blood Pressure Screening Patient's blood pressure: Elevated blood pressure Blood pressure disposition: Elevated BP felt to be situational Impression Primary Impression: Dizziness Additional Impression: Head ache Scribe Attestation The scribe's documentation has been prepared under my direction and personally reviewed by me in its entirety. I confirm that the note above accurately reflects all work, treatment, procedures, and medical decision making performed by me. Departure Information Dispostion Home / Self-Care Prescriptions Ondasetron Odt (ZOFRAN ODT) 4 Mg Tab 4 MG SL Q6H for Nausea, #10 TAB Prov: Uday Alva M.D. 02/04/18 Meclizine HCl (Meclizine HCl) 25 Mg Tab 1 TAB PO Q8 Y for Dizziness or Vertigo, #12 TAB Prov: Uday Alva M.D. 02/04/18 Referrals Dori Gimenez D.O. (PCP) Forms HOME CARE DOCUMENTATION FORM, IMPORTANT VISIT INFORMATION Patient Instructions [facility] Additional Instructions try meclizine 1 tab every 8 hours if needed for vertigo use zofran 1 tab every 6 hours for nausea rest fluids see zaida rouse for a reheck return for worsening symptoms or weakness as discussed Problem Qualifiers
[2018-02-04 19:04] LABS: BASO % 0.6 %; BASO ABS # 0.04 K/uL (0-0.2); EOS % 3.2 %; HEMATOCRIT 44.8 % (37-47); IG# 0.01 K/uL (0.00-0.02); LYMPH % 35.5 %; LYMPH ABS # 2.21 K/uL (1.2-3.4); MEAN CELL VOLUME 95.3 fL (80-100); MEAN CORPUSCULAR HEMOGLOBIN 31.9 pg (25-34); MEAN CORPUSCULAR HGB CONC 33.5 g/dl (32-36); MEAN PLATELET VOLUME 9.5 fL (7.4-10.4); MONO % 5.9 %; MONO ABS # 0.37 K/uL (0.11-0.59); NEUT % 54.6 %; NEUT ABS # 3.39 K/uL (1.4-6.5); PLATELET COUNT 264 K/uL (130-400); RED CELL DISTRIBUTION WIDTH CV 14.2 % (11.5-14.5); RED CELL DISTRIBUTION WIDTH SD 50.3 fL (36.4-46.3); WHITE BLOOD COUNT 6.22 K/uL (4.8-10.8)
[2018-02-04] MEDS ORDERED: POLY335019 PO (19:15)
[2018-02-04] MEDS ORDERED: AMOX500C3 PO (19:15)
[2018-02-04] MEDS ORDERED: METO25TA56 PO (19:15)
[2018-02-04] MEDS ORDERED: LSN25 PO (19:15)
[2018-02-04] MEDS ORDERED: FLUT0.15 NAE (19:15)
[2018-02-04] MEDS ORDERED: EMPA1TAB PO (19:15)
[2018-02-04] MEDS ORDERED: FENO134C PO (19:15)
[2018-02-04] MEDS ORDERED: RANI150T3 PO (19:15)
[2018-02-04] MEDS ORDERED: NVLGI/PEN SC (19:15)
[2018-02-04] MEDS ORDERED: OXGN (19:15)
[2018-02-04 19:23] LABS: ALBUMIN 4.7 gm/dl (3.4-5.0); CALCIUM 9.7 mg/dl (8.5-10.1); CREATININE 1.04 mg/dl (0.60-1.20); POTASSIUM 3.8 mmol/L (3.5-5.1); TOTAL PROTEIN 8.3 gm/dl (6.4-8.2)
[2018-02-04] MEDS ORDERED: PROMETHAZINE HCL INJ 6.25 MG in SODIUM CHLORIDE 0.9% 50ML 50 ML IV STA (19:25)
[2018-02-04] MEDS: ONDANSETRON INJ 2 MG/ML 2 ML VIAL IV STA ×2 (19:25→19:56)
--- NOTE | 2018-02-04 19:25 | DIAGNOSTIC IMAGING REPORT ---
CT SCAN OF THE BRAIN WITHOUT IV CONTRAST CLINICAL HISTORY: Change in mental status. Generalized weakness. COMPARISON STUDY: CT of the brain dated 05/29/2015. TECHNIQUE: Unenhanced axial CT scan of the brain is performed from the vertex to the skull base. A dose lowering technique was utilized adhering to the principles of ALARA. CT DOSE: 537.48 mGy.cm FINDINGS: Brain parenchyma: The brain parenchyma is normal in appearance. There is no hemorrhage, mass effect, or evidence of acute territorial ischemia by CT criteria. Page-white matter is preserved. No extra-axial fluid collection is seen. Ventricles, sulci, cisterns: Normal in configuration. Intracranial vasculature: There is atherosclerotic calcification of the cavernous carotid arteries. Calvarium: Unremarkable. Sinuses and mastoids: The visualized paranasal sinuses are clear. The mastoid air cells are well pneumatized. Orbits: The bony orbits are grossly intact. IMPRESSION: There is no hemorrhage, mass effect, or evidence of acute territorial ischemia by CT criteria. Electronically signed by: Uday Horner M.D. 02/04/2018 7:24 PM Dictated Date/Time: 02/04/2018 7:22 PM
[2018-02-04] MEDS ORDERED: ANT25 PO (21:08)
[2018-02-04] MEDS ORDERED: ONDA4TAB10 SL (21:08)
[2018-02-04] MEDS ORDERED: MECLIZINE HCL 25MG HOME PACK PO ONE (21:15)
[2018-02-04] MEDS ORDERED: ONDANSETRON HOME PACK 4MG OD TAB PO ONE (21:15)
[2018-02-04 21:21] VITALS: BP 131/72; PULSE 68; O2SAT 93
== END 2018-02-04 21:21 | disposition home or self-care (01) ==
LOC: C.EDB 18:04
DX: R42 Dizziness and giddiness (principal); R51 Headache; I25.10 Atherosclerotic heart disease of native coronary artery without angina pectoris; I10 Essential (primary) hypertension; E11.40 Type 2 diabetes mellitus with diabetic neuropathy, unspecified; E78.5 Hyperlipidemia, unspecified; Z87.442 Personal history of urinary calculi; Z95.1 Presence of aortocoronary bypass graft; Z88.8 Allergy status to other drugs, medicaments and biological substances; Z91.041 Radiographic dye allergy status; Z91.09 Other allergy status, other than to drugs and biological substances; Z79.4 Long term (current) use of insulin; Z79.82 Long term (current) use of aspirin; Z79.84 Long term (current) use of oral hypoglycemic drugs; Z79.899 Other long term (current) drug therapy

== ENCOUNTER 2018-04-25 13:07 | Emergency (ER) | payer OTHER ==
[~2018-04-25] VITALS: Ht 154.9 cm; Wt 73.5 kg
[~2018-04-25 13:07] MED LIST changes: +AMOX500C3 PO; +ANT25 PO; +EMPA1TAB PO; +FENO134C PO; -FENO50CA3 PO; +FLUT0.15 NAE; -INSDGIPEN SC; +LSN25 PO; +METO25TA56 PO; +NVLGI/PEN SC; +ONDA4TAB10 SL; +OXGN; +POLY335019 PO; +RANI150T3 PO
[2018-04-25 13:09] VITALS: TEMP 36.3; Ht 154.9 cm; Wt 73.5 kg
--- NOTE | 2018-04-25 13:28 | EMERGENCY ROOM VISIT NOTE ---
History Report prepared by Deanna: Deb Rodriguez Under the Supervision of: Dr. Sujatha Craven D.O. First contact with patient: 13:14 Chief Complaint: BACK PAIN Stated Complaint: PAIN ON BACK SIDES History of Present Illness The patient is a 58 year old female who presents to the Emergency Room with complaints of persistent right flank and right sided back pain that started last night. The patient rates her pain an 8/10 in severity. The patient reports the pain came of all of a sudden. She states it is difficult to walk secondary to pain. She reports she an episode of vomiting last night. The patient reports she has history of kidney stones and these symptoms feel similar. She denies any recent change in medications except a decrease in dosage of her diabetic nerve pain medication. She states she has been trying to drink more water and was recently put on a water pill. She notes she has been urinating more frequently. She reports she has intermittent pain with urination. Source of History: patient Onset: last night Position: back, other (right flank) Symptom Intensity: 8/10 Timing: other (persistent) Associated Symptoms: + vomiting, + urinary symptoms Review of Systems See HPI for pertinent positives & negatives. A total of 10 systems reviewed and were otherwise negative. Past Medical & Surgical Medical Problems: (1) Maldonado's esophagus (2) Coronary artery disease (3) Diabetes mellitus, type II (4) Diabetic neuropathy (5) Diverticular disease of colon (6) Dyslipidemia (7) History of urinary calculi (8) Hypertension (9) Migraine headache Surgical Problems: (1) Status post coronary artery bypass grafting Family History Diabetes mellitus FHx: cancer FHx: heart disease Hypertension Social History Smoking Status: Former Smoker Alcohol Use: occasionally Drug Use: none Marital Status: Housing Status: lives with significant other Occupation Status: unemployed Current/Historical Medications Scheduled Amoxicillin (Amoxil), Unknown Dose PO DIRECTED Aspirin (Aspirin Ec), 162 MG PO DAILY Cilostazol (Pletal), 50 MG PO DAILY Dicyclomine Hcl (Bentyl), 10 MG PO BID Duloxetine Hcl (Cymbalta), 30 MG PO DAILY Empagliflozin (Jardiance), 10 MG PO DAILY Fenofibrate Micronized (Tricor), 134 MG PO QAM WITH MEAL Fluticasone Propionate (Nasal) (Flonase Allergy Relief), 2 SPRAYS JOSE CARLOS DAILY Furosemide (Lasix), 20 MG PO Q2D Gabapentin (Gabapentin), 400 MG PO BID Home O2 Therapy (Oxygen), 2 LITERS NA HS Insulin Aspart (Novolog Flexpen), 6 UNITS SC DAILY WITH LUNCH Insulin Aspart Protamine & Asp (Novolog Mix 70/30), 88 UNITS SC QAM Insulin Aspart Protamine & Asp (Novolog Mix 70/30), 98 UNITS SC QPM Lisinopril (Lisinopril), 0.5 TAB PO DAILY Metformin Hcl (Glucophage), 1,000 MG PO BIDM Metoprolol Tartrate (Lopressor) (Lopressor), 12.5 MG PO DAILY Mometasone Furoate-Formoterol (Dulera 100/5 Mcg), 2 PUFFS INH BID Nystatin (Nystatin Cream), 1 APPLN TOP DIRECTED Pantoprazole (Protonix), 40 MG PO BID Polyethylene Glycol 3350 (Miralax), 1-4 DOSE PO DAILY Potassium Chloride (Klor-Con Sprinkle), 10 MEQ PO Q2D Ranitidine Hcl (Zantac), 150 MG PO BID Rosuvastatin Calcium (Crestor), 40 MG PO DAILY Scheduled PRN Acetaminophen (Tylenol), 500 MG PO Q4H PRN for Pain Albuterol Sulfate (Proair Respiclick), 2 PUFFS PO Q4 PRN for Cough Allergies Coded Allergies: Iodine (Verified Allergy, Intermediate, HIVES, 04/25/18) CT DYE/XRAY DYE ALLERGY Metoclopramide (Verified Allergy, Intermediate, HIVES, 04/25/18) Adhesives (Verified Allergy, Mild, RASH FROM NICOTINE PATCHES, 04/25/18) Iodinated Diagnostic Agents (Verified Allergy, Unknown, ITCHINESS/HIVES, ) Physical Exam Vital Signs Date Time Temp Pulse Resp B/P (MAP) Pulse Ox O2 Delivery O2 Flow Rate FiO2 04/25/18 17:24 61 16 106/61 95 Room Air 04/25/18 15:24 60 16 116/70 98 Room Air 04/25/18 13:49 76 18 94 Room Air 04/25/18 13:09 36.3 79 17 129/77 93 Room Air Physical Exam GENERAL: alert, well appearing, well nourished, no distress, non-toxic EYE EXAM: normal conjunctiva, PERRL and EOM's grossly intact OROPHARYNX: no exudate, no erythema, lips, buccal mucosa, and tongue normal and mucous membranes are moist NECK: supple, no nuchal rigidity, no adenopathy, non-tender LUNGS: Clear to auscultation. Normal chest wall mechanics HEART: no murmurs, S1 normal and S2 normal ABDOMEN: abdomen soft, non-tender, normo-active bowel sounds, no masses, no rebound or guarding. BACK: Back is symmetrical on inspection and there is no deformity, no midline tenderness. Right lower quadrant and right flank pain. SKIN: no rashes and no bruising UPPER EXTREMITIES: upper extremities are grossly normal. LOWER EXTREMITIES: No pitting edema. NEURO EXAM: Normal sensorium, cranial nerves II-XII grossly intact, normal speech, no gross weakness of arms, no gross weakness of legs. Medical Decision & Procedures ER Provider Diagnostic Interpretation: Radiology results have been interpreted by the radiologist and reviewed by me. ABD/PELVIS WITHOUT FOR STONE CT DOSE: 1128.68 mGy.cm HISTORY: Flank pain right flank pain/RLQ pain TECHNIQUE: Multiaxial CT images of the abdomen and pelvis were performed without the use of intravenous and oral contrast according to the standard department stone protocol. A dose lowering technique was utilized adhering to the principles of ALARA. COMPARISON STUDY: 01/31/2014 FINDINGS: The lung bases are considered clear. Multiple dependent basilar atelectatic change. Mild hepatomegaly. Spleen and pancreas are considered unremarkable. 8 mm left adrenal nodule felt to represent a lipid poor benign adenoma. Kidneys are considered negative for hydronephrosis or obstructive change. The bowel pattern is nonobstructive. The appendix is normal. Bladder is midline. There is no free fluid within the pelvic cul-de-sac. IMPRESSION: 1. Mild hepatomegaly.. 2. Small benign left adrenal adenoma unchanged from the prior study. 3. Otherwise negative abdomen and pelvis. 4. Nonobstructive bowel pattern. Normal appendix. The above report was generated using voice recognition software. It may contain grammatical, syntax or spelling errors. Electronically signed by: Twin Connor M.D. 04/25/2018 3:09 PM Dictated Date/Time: 04/25/2018 3:06 PM Laboratory Results 04/25/18 13:19 Red Blood Count 5.16, Mean Corpuscular Volume 93.8, Mean Corpuscular Hemoglobin 31.4, Mean Corpuscular Hemoglobin Concent 33.5, Mean Platelet Volume 10.0, Neutrophils (%) (Auto) 51.2, Lymphocytes (%) (Auto) 36.3, Monocytes (%) (Auto) 8.1, Eosinophils (%) (Auto) 3.1, Basophils (%) (Auto) 0.8, Neutrophils # (Auto) 3.09, Lymphocytes # (Auto) 2.19, Monocytes # (Auto) 0.49, Eosinophils # (Auto) 0.19, Basophils # (Auto) 0.05 04/25/18 13:19 Test 04/25/18 13:19 04/25/18 13:46 White Blood Count 6.04 K/uL (4.8-10.8) Red Blood Count 5.16 M/uL (4.2-5.4) Hemoglobin 16.2 g/dL (12.0-16.0) Hematocrit 48.4 % (37-47) Mean Corpuscular Volume 93.8 fL (80-100) Mean Corpuscular Hemoglobin 31.4 pg (25-34) Mean Corpuscular Hemoglobin Concent 33.5 g/dl (32-36) Platelet Count 297 K/uL (130-400) Mean Platelet Volume 10.0 fL (7.4-10.4) Neutrophils (%) (Auto) 51.2 % Lymphocytes (%) (Auto) 36.3 % Monocytes (%) (Auto) 8.1 % Eosinophils (%) (Auto) 3.1 % Basophils (%) (Auto) 0.8 % Neutrophils # (Auto) 3.09 K/uL (1.4-6.5) Lymphocytes # (Auto) 2.19 K/uL (1.2-3.4) Monocytes # (Auto) 0.49 K/uL (0.11-0.59) Eosinophils # (Auto) 0.19 K/uL (0-0.5) Basophils # (Auto) 0.05 K/uL (0-0.2) RDW Standard Deviation 47.4 fL (36.4-46.3) RDW Coefficient of Variation 13.8 % (11.5-14.5) Immature Granulocyte % (Auto) 0.5 % Immature Granulocyte # (Auto) 0.03 K/uL (0.00-0.02) Prothrombin Time 10.5 SECONDS (9.0-12.0) Prothromb Time International Ratio 1.0 (0.9-1.1) Anion Gap 11.0 mmol/L (3-11) Est Creatinine Clear Calc Drug Dose 59.8 ml/min Estimated GFR () 77.5 Estimated GFR (Non- 66.9 BUN/Creatinine Ratio 14.3 (10-20) Calcium Level 9.3 mg/dl (8.5-10.1) Total Bilirubin 0.5 mg/dl (0.2-1) Aspartate Amino Transf (AST/SGOT) 28 U/L (15-37) Alanine Aminotransferase (ALT/SGPT) 47 U/L (12-78) Alkaline Phosphatase 59 U/L (45-117) Total Protein 9.2 gm/dl (6.4-8.2) Albumin 5.0 gm/dl (3.4-5.0) Globulin 4.2 gm/dl (2.5-4.0) Albumin/Globulin Ratio 1.2 (0.9-2) Urine Color YELLOW Urine Appearance CLEAR (CLEAR) Urine pH 5.0 (4.5-7.5) Urine Specific [place] 1.011 (1.000-1.030) Urine Protein NEG (NEG) Urine Glucose (UA) 3+ (NEG) Urine Ketones NEG (NEG) Urine Occult Blood NEG (NEG) Urine Nitrite NEG (NEG) Urine Bilirubin NEG (NEG) Urine Urobilinogen NEG (NEG) Urine Leukocyte Esterase NEG (NEG) Laboratory results per my review. Medications Administered Medications (Trade) Dose Ordered Sig/Amy Route Start Time Stop Time Status Last Admin Dose Admin Sodium Chloride 1,000 ml @ 999 mls/hr Q1H1M STAT IV 04/25/18 13:40 04/25/18 14:40 DC 04/25/18 13:48 999 MLS/HR Fentanyl Citrate (Fentanyl Inj) 50 mcg NOW STAT IV 04/25/18 13:41 04/25/18 13:42 DC 04/25/18 13:49 50 MCG Ketorolac Tromethamine (Toradol Inj) 30 mg NOW STAT IV 04/25/18 15:36 04/25/18 15:38 DC 04/25/18 15:43 30 MG ED Course 1315: The patient was evaluated in room C1B. A complete history and physical exam was performed. 1340: Ordered Sodium Chloride 1000 ml @ 999 mls/hr IV. 1341: Ordered Fentanyl Inj 50 mcg IV. 1536: Ordered Toradol Inj 30 mg IV. 1615: I rechecked the patient. She states she is still having pain. I also updated her on her results. 1750: The patient informed nursing staff that she is feeling better. 1800: Upon reevaluation, the patient is feeling better. I discussed the findings and the treatment plan with the patient. She verbalizes agreement and understanding. She was discharged home. Medical Decision Differential diagnosis: Etiologies such as renal colic, appendicitis, diverticulitis, mesenteric ischemia, aortic pathology, infections, inflammatory bowel disease, PUD, biliary pathology, UTI, as well as others were entertained. Patient well-appearing here despite complaints. Was ambulatory with steady gait. Back pain and flank pain were reproducible, patient was concerned about a kidney stone due to prior history of the same. No evidence of stone on CT or other acute GI or pathology. No evidence of acute vascular pathology. UA without hematuria or infection. Other labs reassuring and no evidence of abnormal renal function. Have a lower suspicion for acute cholecystitis, biliary colic. Possible musculoskeletal etiology. No evidence of bacteremia/ sepsis. Patient hemodynamically stable throughout. I do not suspect atypical pulmonary pathology. Discussed with her follow-up with family doctor, diet and hydration, use of medications, avoidance of alcohol in the interim, symptoms to watch and return for, she verbalized understanding was agreeable with plan. Medication Reconcilliation Current Medication List: was personally reviewed by me Blood Pressure Screening Patient's blood pressure: Normal blood pressure Impression Primary Impression: Flank pain Scribe Attestation The scribe's documentation has been prepared under my direction and personally reviewed by me in its entirety. I confirm that the note above accurately reflects all work, treatment, procedures, and medical decision making performed by me. Departure Information Dispostion Home / Self-Care Referrals Dori Gimenez D.O. (PCP) Patient Instructions My [facility] Additional Instructions Please call follow-up with your family doctor to recheck your symptoms. Please use Tylenol and ibuprofen as needed to help with pain. Please stay well- hydrated. Please avoid any heavy lifting or strenuous activity until you are improved. You may also try an [id number] topical pain patch in the form of lidocaine. If you have any worsening pain, develop difficulty urinating, fevers or chills, trouble breathing, chest pain, numbness or tingling, noticed a change in your bowel movements, or of any concerns, please return the emergency room.
[2018-04-25] MEDS ORDERED: SODIUM CHLORIDE 0.9% 1000ML 1,000 ML IV STA (13:40)
[2018-04-25] MEDS ORDERED: FENTANYL CITRATE INJ 50 MCG/1 ML 2 ML VIAL IV STA (13:41)
[2018-04-25 13:57] LABS: BASO % 0.8 %; BASO ABS # 0.05 K/uL (0-0.2); EOS % 3.1 %; EOS ABS # 0.19 K/uL (0-0.5); HEMATOCRIT 48.4 % (37-47); HEMOGLOBIN 16.2 g/dL (12.0-16.0); IG# 0.03 K/uL (0.00-0.02); LYMPH % 36.3 %; LYMPH ABS # 2.19 K/uL (1.2-3.4); MEAN CELL VOLUME 93.8 fL (80-100); MEAN CORPUSCULAR HEMOGLOBIN 31.4 pg (25-34); MEAN CORPUSCULAR HGB CONC 33.5 g/dl (32-36); MONO % 8.1 %; MONO ABS # 0.49 K/uL (0.11-0.59); NEUT % 51.2 %; NEUT ABS # 3.09 K/uL (1.4-6.5); PLATELET COUNT 297 K/uL (130-400); RED CELL DISTRIBUTION WIDTH CV 13.8 % (11.5-14.5); RED CELL DISTRIBUTION WIDTH SD 47.4 fL (36.4-46.3); WHITE BLOOD COUNT 6.04 K/uL (4.8-10.8)
[2018-04-25 14:08] LABS: CALCIUM 9.3 mg/dl (8.5-10.1); CREATININE 0.94 mg/dl (0.60-1.20); POTASSIUM 3.7 mmol/L (3.5-5.1); TOTAL PROTEIN 9.2 gm/dl (6.4-8.2)
[2018-04-25] MEDS ORDERED: CYM/30 PO (14:25)
--- NOTE | 2018-04-25 15:11 | DIAGNOSTIC IMAGING REPORT ---
ABD/PELVIS WITHOUT FOR STONE CT DOSE: 1128.68 mGy.cm HISTORY: Flank pain right flank pain/RLQ pain TECHNIQUE: Multiaxial CT images of the abdomen and pelvis were performed without the use of intravenous and oral contrast according to the standard department stone protocol. A dose lowering technique was utilized adhering to the principles of ALARA. COMPARISON STUDY: 01/31/2014 FINDINGS: The lung bases are considered clear. Multiple dependent basilar atelectatic change. Mild hepatomegaly. Spleen and pancreas are considered unremarkable. 8 mm left adrenal nodule felt to represent a lipid poor benign adenoma. Kidneys are considered negative for hydronephrosis or obstructive change. The bowel pattern is nonobstructive. The appendix is normal. Bladder is midline. There is no free fluid within the pelvic cul-de-sac. IMPRESSION: 1. Mild hepatomegaly.. 2. Small benign left adrenal adenoma unchanged from the prior study. 3. Otherwise negative abdomen and pelvis. 4. Nonobstructive bowel pattern. Normal appendix. The above report was generated using voice recognition software. It may contain grammatical, syntax or spelling errors. Electronically signed by: Twin Connor M.D. 04/25/2018 3:09 PM Dictated Date/Time: 04/25/2018 3:06 PM
[2018-04-25] MEDS ORDERED: KETOROLAC TROMETHAMINE 30 MG/ML VIAL IV STA (15:36)
[2018-04-25 17:24] VITALS: BP 106/61; PULSE 61; O2SAT 95
== END 2018-04-25 17:50 | disposition home or self-care (01) ==
LOC: C.EDB 13:09 → C.EDC 17:50
DX: R10.31 Right lower quadrant pain (principal); Z87.442 Personal history of urinary calculi; K22.70 Barrett's esophagus without dysplasia; I25.10 Atherosclerotic heart disease of native coronary artery without angina pectoris; E11.40 Type 2 diabetes mellitus with diabetic neuropathy, unspecified; E78.5 Hyperlipidemia, unspecified; I10 Essential (primary) hypertension; Z95.1 Presence of aortocoronary bypass graft; Z83.3 Family history of diabetes mellitus; Z80.9 Family history of malignant neoplasm, unspecified; Z82.49 Family history of ischemic heart disease and other diseases of the circulatory system; Z87.891 Personal history of nicotine dependence; Z79.82 Long term (current) use of aspirin; Z79.84 Long term (current) use of oral hypoglycemic drugs; Z79.899 Other long term (current) drug therapy; Z79.4 Long term (current) use of insulin; Z91.048 Other nonmedicinal substance allergy status; Z91.041 Radiographic dye allergy status; Z88.8 Allergy status to other drugs, medicaments and biological substances